=== PATIENT | female | born 1990 | race Caucasian/White ===

== ENCOUNTER → 2018-04-20 09:21 | Outpatient (CLI) | payer OTHER, SELFPAY ==
[2018-04-21 18:26] LABS: Strep Grp B PCR POS for Grp B Strep
== END ==
PROVIDERS: Family Provider Pediatrics; PCP Pediatrics; Visit Provider Family Medicine
DX: Z34.03 Encounter for supervision of normal first pregnancy, third trimester (principal); Z3A.36 36 weeks gestation of pregnancy
CPT/HCPCS: 87653

== ENCOUNTER 2018-05-20 11:48 | Inpatient (IN) | payer OTHER, SELFPAY ==
--- NOTE | 2018-05-20 13:07 | P.HP_ITS ---
History of Present Illness Date Patient Seen: 05/20/18 Time Patient Seen: 13:03 Chief complaint: OBS Narrative: 27-year-old female G1 para 0 estimated due date of 05/18/2018 based on LMP and early ultrasound she is currently 40 weeks and 2 days. Patient presents to Labor and delivery floor with complaints of contraction. Patient states she had a normal day yesterday. She was seen in the office by me on Thursday. She has had no fevers chills headache dizziness blurry vision no leakage of fluid or discharge. Patient states she woke up at 1:00 a.m. this morning. With contractions. Contractions have been intermittent throughout the night. At 3:00 a.m. in the morning the became more regular. She has been laboring a little bit at home and now comes in this afternoon for evaluation. She says her contractions are 6 out of 10 on the pain scale every 3-4 minutes. Between contractions she feels fine. She has had no bleeding or spotting or leaking of fluid. She is tablets care at 10 weeks. Had routine follow-up. Had weight gain of approximately 25 lb. care compounded by blood type negative and GBS positive status. labs show blood type O negative antibody screen negative hemoglobin 13.8 VDRL nonreactive hepatitis B surface antigen negative HIV negative chlamydia negative gonorrhea neck negative rubella immune hepatitis-C negative. Past medical history of migraine headaches irritable bowel syndrome exposure to hepatitis a Family history of heart disease breast cancer and diabetes Social history she is a nonsmoker social drinker but not during . Surgeries she has had wisdom teeth out Meds Allergies Allergy/AdvReac Type Severity Reaction Status Date / Time measles, mumps, and rubella Allergy Severe Rash Verified 05/11/18 18:01 vaccine Exam Vital Signs (past 8 hours): . Temp 98.0? blood pressure 129 or 70 pulse is 96 General: Alert no apparent distress. Affect is appropriate. Radha it is uncomfortable. HEENT: Neck is supple without lymphadenopathy pupils equal round and reactive. Cardio: S1-S2 regular rate and rhythm. Respiratory: Lungs clear to auscultation. Abdomen: Gravid. Vaginal exam 3-4 cm dilated 80% effaced intact membranes 0 to +1 station Extremities: Normal deep tendon reflexes trace edema. Mather: Radha regularly every 3-5 minutes with 60 minute contractions moderate and strength. heart tones: heart tones 150 category 1 tracing Assessment & Plan Plan: Assessment/Plan Narrative: 27-year-old G1 para 0 at 40 weeks and 2 7 stays in active labor. GBS positive status and Rh negative. She will be admitted to the Center. Orders were written for. Admission progress to the Center was reviewed with patient' s including care management plans. Discussed IV placement laboratory testing antibiotics for GBS status type and screen for possible blood products if needed. We discussed about fentanyl and potential use of epidural if patient wishes. Discussed about her GBS status and will start with penicillin G5 1000 units and then 3000 units thereafter every 4 hr. Will hold off on rupture of membranes due to her positive status until she receives appropriate antibiotic prophylaxis. monitoring and vaginal exams per protocol. Manage expectantly at this point.
[2018-05-20] MEDS: PENICILLIN G POTASSIUM 5,000,000 UNIT in DEXTROSE 5% IN WATER 250 ML IV (13:40)
[2018-05-20 14:33] LABS: Add Manual Diff / Slide Review NO; Basophils Percent Auto 0.2 % (0-2); Eosinophils Percent Auto 0.4 % (2-4); Hematocrit 40.1 % (36-46); Lymphocytes Percent Auto 9.2 % (25-40); Mean Corpuscular HGB Conc 34.8 % (30-36); Mean Corpuscular Hemoglobin 31.2 PG (26-34); Mean Corpuscular Volume 89.5 fL (80-100); Monocytes Percent Auto 6.8 % (3-14); Neutrophils Absolute Auto 15500 /uL (3000-5900); Neutrophils Percent Auto 83.4 % (50-75); Platelet Count 380 X10^3/uL (150-400); Red Blood Cell Count 4.48 X10^6/uL (4.0-5.2); Red Cell Distribution Width 13.4 % (11.6-14.8); White Blood Cell Count 18.5 X10^3/uL (4.5-11.0)
[2018-05-20] MEDS: LACTATED RINGERS 1,000 ML 1000 ML IV (15:00)
[2018-05-20] MEDS: LACTATED RINGERS 1,000 ML 100 ML IV (16:15)
--- NOTE | 2018-05-20 17:45 | PM.OBPNLAB ---
Date/Time Date Patient Seen: 05/20/18 Time Patient Seen: 17:45 Pain Control Pain control: tolerating well and epidural Comments: Patient doing well. Checked on multiple times throughout the afternoon. Has made slow and steady progress. She is now 6-7 cm. The but orals working fine still intact membranes. Neck is dose of penicillin at 6:00 a.m.. Will probably rupture after this to help accelerate labor. heart tones are category 1. Epidural pain control is working well. Vital signs are stable. She is afebrile. Mom's white blood cell count was slightly elevated on admission. Pelvic Exam Dilation (cm): 6 Effacement (%): 90 station: +1 Amniotic membrane status: Intact Status status: Category l Heart Rate Baseline: 140 Monitor Accelerations: Present Monitor Decelerations: Absent Monitor Variability: Moderate Assessment and Plan Assessment: active labor Plan: continuous present management
[2018-05-20] MEDS: PENICILLIN G POTASSIUM 3,000,000 UNIT/50 ML FROZ.PIGGY 100 UNIT IV (18:00)
[2018-05-20] MEDS: OXYTOCIN 10 UNIT/ML VIAL IM (22:25)
--- NOTE | 2018-05-20 22:34 | PM.OBPRVD ---
Estimated blood loss (mL): 3,000 Narrative: Stage I of labor. Eight half hr. Category 1 tracing. Patient presented labor and delivery floor. In early active labor. She made good cervical change during stage I of labor. She received 2 courses of antibiotic for GBS positive status. She had a mildly elevated white blood cell count on arrival. She remained afebrile throughout the labor course. heart tones were reassuring. She had spontaneous rupture of membranes with clear fluid as she was coming to complete. She received an epidural anesthesia during labor and had good results. Stage II of labor 2 hr. Category 1 tracing with some variable decelerations. She may good descent during the pushing time. Baby was born in the vertex position occiput anterior. Delivery of head and shoulders without difficulty. Viable female infant delivered on the mother's abdomen. There is delayed cord clamping. Cord was then clamped transected. Baby was resting comfortably. There was no cervical or vaginal tears appreciated. Stage III 10 min. Delivery of intact placenta with three-vessel cord. Estimated blood loss was 300 cc. Patient was given 10 units of IM Pitocin had a fundal massage. After the delivery mom and baby resting comfortably.
[2018-05-21 00:20] VITALS: BP 129/70
[2018-05-21] MEDS: IBUPROFEN 600 MG TABLET PO ×3 (03:27→16:02)
[2018-05-21 07:00] LABS: Hematocrit 37.2 % (36-46); Hemoglobin 12.7 g/dL (12.0-16.0)
[2018-05-21 08:12] VITALS: BP 112/68; PULSE 81; RESP 16; TEMP 36.6; O2SAT 98
--- NOTE | 2018-05-21 08:46 | P.DS_ITS ---
History of Present Illness Chief complaint: OBS Narrative: 27-year-old female G1 para 0 estimated due date of 05/18/2018 based on LMP and early ultrasound she is currently 40 weeks and 2 days. Patient presents to Labor and delivery floor with complaints of contraction. Patient states she had a normal day yesterday. She was seen in the office by me on Thursday. She has had no fevers chills headache dizziness blurry vision no leakage of fluid or discharge. Patient states she woke up at 1:00 a.m. this morning. With contractions. Contractions have been intermittent throughout the night. At 3:00 a.m. in the morning the became more regular. She has been laboring a little bit at home and now comes in this afternoon for evaluation. She says her contractions are 6 out of 10 on the pain scale every 3-4 minutes. Between contractions she feels fine. She has had no bleeding or spotting or leaking of fluid. She is tablets care at 10 weeks. Had routine follow-up. Had weight gain of approximately 25 lb. care compounded by blood type negative and GBS positive status. labs show blood type O negative antibody screen negative hemoglobin 13.8 VDRL nonreactive hepatitis B surface antigen negative HIV negative chlamydia negative gonorrhea neck negative rubella immune hepatitis-C negative. Past medical history of migraine headaches irritable bowel syndrome exposure to hepatitis a Family history of heart disease breast cancer and diabetes Social history she is a nonsmoker social drinker but not during . Surgeries she has had wisdom teeth out Discharge Providers Date of admission: 05/20/18 11:48 Primary care physician: Sallie Jacques MD Consults: 05/21/18 06:39 Consult to Customer Solutions Supervisor Routine Comment: Discharge provider: Dagoberto Tapia MD Discharge Date: 05/21/18 Summary Discharge Diagnosis: Vaginal delivery viable female infant Routine care GBS positive received 2 doses of antibiotics Rh-negative received RhoGAM due to Rh positive baby Exam Vital Signs (past 8 hours): - 05/21/18 08:12 Temperature 97.8 F Pulse Rate 81 Respiratory Rate 16 Blood Pressure 112/68 Pulse Oximetry 98 Narrative Exam Narrative: General: Alert no apparent distress. Affect is appropriate. Radha it is uncomfortable. HEENT: Neck is supple without lymphadenopathy pupils equal round and reactive. Cardio: S1-S2 regular rate and rhythm. Respiratory: Lungs clear to auscultation. Abdomen: Uterus firm. Extremities: Normal deep tendon reflexes trace edema. Objective Labs Result Diagrams: 05/21/18 06:40 Labs: Laboratory Results - last 24 hr 05/20/18 05/20/18 05/21/18 13:40 13:40 06:40 WBC 18.5 H RBC 4.48 Hgb 14.0 12.7 Hct 40.1 37.2 MCV 89.5 MCH 31.2 MCHC 34.8 RDW 13.4 Plt Count 380 Neut % (Auto) 83.4 H Lymph % (Auto) 9.2 L [place] % (Auto) 6.8 Eos % (Auto) 0.4 L Baso % (Auto) 0.2 Neut # (Auto) 02095 H Blood Type O Negative Antibody Screen Negative Maternal Bleed 05/21/18 06:40 WBC RBC Hgb Hct MCV MCH MCHC RDW Plt Count Neut % (Auto) Lymph % (Auto) [place] % (Auto) Eos % (Auto) Baso % (Auto) Neut # (Auto) Blood Type Antibody Screen Maternal Bleed Negative Discharge Plan Discharge Plan Patient Disposition: Home Discharge Med Rec/Prescriptions Prescriptions: No Action No Known Home Medications RF: 0 Discharge Data Primary Care Provider: Sallie Jacques Attending Provider: Dagoberto Tapia Admit Date/Time: 05/20/18 11:48
[2018-05-21] MEDS: DOCUSATE 250 MG CAPSULE PO (09:34)
[2018-05-21] MEDS: RHO(D) IMMUNE GLOBULIN 1,500 UNIT SYRINGE 1500 UNIT IM (11:12)
[2018-05-21 12:09] VITALS: BP 112/68; PULSE 81; RESP 16; TEMP 36.6
== END 2018-05-21 18:30 | disposition home or self-care (01) | DRG 807 ==
PROVIDERS: Admitting Provider Family Medicine; Family Provider Pediatrics; PCP Pediatrics; Visit Provider Family Medicine
DX: O99.824 Streptococcus B carrier state complicating childbirth (principal); Z37.0 Single live birth; Z3A.40 40 weeks gestation of pregnancy
CPT/HCPCS: 01967; 36415; 59050; 59410; 85014; 85018; 85025; 85461; 86850; 86900; 86901; G0379; J2540; J2590; J2790; J3010